=== PATIENT | male | born 1980 | race Caucasian/White ===

== ENCOUNTER → 2023-09-21 | Outpatient (CLI) | payer SELFPAY ==
[~2023-09-21] MED LIST: CELE0.09; DOXY-443 PO; LIDOCAINE 1% MDV 20ML VIAL As Ordered ONE
[2023-09-21 10:04] VITALS: TEMP 98.7
[2023-09-21 11:15] VITALS: BP 141/77; O2SAT 100
== END ==
LOC: M IRPRO 09:51
PROVIDERS: ATTEND Surgery
DX: R59.0 Localized enlarged lymph nodes (principal)